=== PATIENT | male | born 1995 | race Caucasian/White ===

== ENCOUNTER 2017-06-29 21:20 | Emergency (ER) | payer OTHER ==
[~2017-06-29] VITALS: Ht 182.9 cm; Wt 77.1 kg
[2017-06-29 21:23] VITALS: BP 139/88
--- NOTE | 2017-06-29 21:28 | NUR ---
PT AMBULATED TO CHAIR B
--- NOTE | 2017-06-29 21:30 | NUR ---
PATIENT IS A 21 Y/O MALE WHO PRESENTS TO THE ED C/O SYNCOPE. PT STATES, "I FELL AND HIT THE LEFT SIDE OF MY HEAD." PT DENIES PAIN AT THIS TIME. PT DENIES CP, SOB, N/V/D. PT AAOX4, RR EVEN/UNLABORED, AMBULATED TO CHAIR WITH STEADY GAIT. PT REPOSITIONED FOR COMFORT, PT SITTING IN CHAIR. ER MD DR. FREDERICK NOTIFIED. WILL CONTINUE TO MONITOR.
--- NOTE | 2017-06-29 22:04 | NUR ---
Dr. Machuca evaluating patient.
[2017-06-29] MEDS ORDERED: ACETAMINOPHEN EXTRA STRENGTH 500 MG TAB PO ONE (22:10)
--- NOTE | 2017-06-29 22:44 | NUR ---
PT TAKEN TO CT
--- NOTE | 2017-06-29 22:56 | NUR ---
PT RETURN FROM CT TO CHAIR C
[2017-06-30 00:07] VITALS: BP 129/78
--- NOTE | 2017-06-30 00:07 | NUR ---
Patient discharged with v/s stable. Written and verbal after care instructions given and explained. Patient verbalized understanding. Ambulatory with steady gait. All questions addressed prior to discharge. Advised to follow up with PMD.
== END 2017-06-30 00:07 | disposition home or self-care (01) ==
LOC: EDBD 21:20 → MED 21:20
DX: S09.90XA Unspecified injury of head, initial encounter (principal); F17.210 Nicotine dependence, cigarettes, uncomplicated; F12.10 Cannabis abuse, uncomplicated; W18.30XA Fall on same level, unspecified, initial encounter; Y93.89 Activity, other specified; Y92.89 Other specified places as the place of occurrence of the external cause; Y99.8 Other external cause status
CPT/HCPCS: 70450; 99284